=== PATIENT | female | born 1945 ===

== ENCOUNTER 2018-11-14 12:54 | Inpatient (IN) ==
[2018-11-15] MEDS: *HR* Enoxaparin 40 MG/0.4 ML SYRINGE SQ SCH (05:27)
[2018-11-15 05:55] LABS: Basophils % 0.6 %; Eosinophils # 0.3 K/mcL (0.0-0.6); Eosinophils % 4.8 %; Hematocrit 38.1 % (35.3-44.9); Hemoglobin 12.7 g/dL (11.5-15.4); Immature Granulocytes % 0.2 % (0-4); Lymphocytes # 1.8 K/mcL (0.6-4.6); Lymphocytes % 29.4 %; Mean Corpuscular HGB Conc 33.3 g/dL (31.6-35.5); Mean Corpuscular Volume 92.9 fL (83.0-100.0); Monocytes # 0.6 K/mcL (0.0-1.3); Monocytes % 9.2 %; Neutrophils # 3.5 K/mcL (1.6-8.9); Platelet Count 211 K/mcL (140-400); Red Cell Distribution Width 12.5 % (11.5-14.5); Segmented Neutrophils % 55.8 %; White Blood Count 6.2 K/mcL (4.3-11.1)
[2018-11-15 06:11] LABS: Alanine Aminotransferase 8 Units/L (7-52); Albumin 3.5 g/dL (3.5-5.7); Albumin/Globulin Ratio 1.5 (1.1-2.2); Alkaline Phosphatase 68 Units/L (34-104); Aspartate Amino Transferase 12 Units/L (13-39); BUN/Creatinine Ratio 35 (6-26); Bilirubin,Total 0.8 mg/dL (0.3-1.0); Blood Urea Nitrogen 18 mg/dL (8-23); Calcium 8.4 mg/dL (8.6-10.3); Carbon Dioxide 29 mEq/L (23-29); Chloride 106 mEq/L (98-107); Globulin 2.3 g/dL (2.4-3.5); Glucose 109 mg/dL (70-105); Osmolality,Calculated 294 (280-300); Potassium 3.7 mEq/L (3.5-5.1); Sodium 141 mEq/L (136-145); Total Protein 5.8 g/dL (6.4-8.9); eGFR For African Americans > 60 (> 60); eGFR For Non-African Americans > 60 (> 60)
[2018-11-15] MEDS: Aspirin 81 MG TAB.CHEW PO SCH (08:10)
--- NOTE | 2018-11-15 09:43 | Internal Med History&Physical ---
Date of Encounter: 11/15/18 Time of Encounter: 09:40 Assessment and Plan (1) CVA (cerebral vascular accident) Current visit: Yes Status: Acute Patient is an admission from [facility] where she was treated for a left CVA resolving and slight right hemiparesis. Patient continues to have some difficulty with gait during ambulation due to slight right foot drop. Patient being fitted with AFO. Patient states that her strength has been returning to her right extremities. Physical therapy evaluation with recommendations pending. We will continue with current medications. Blood pressure goal for systolic is to maintain less than 160. Qualifiers: CVA mechanism: unspecified Qualified Code(s): I63.9 - Cerebral infarction, unspecified (2) Hypertension Current visit: Yes Status: Chronic No acute issues. Vital signs have been stable. We will continue with current medications with a blood pressure goal for systolic at less than 160. Qualifiers: Hypertension type: unspecified Qualified Code(s): I10 - Essential (primary) hypertension Internal Medicine - H&P: HPI Chief complaint: CVA Admitted From: Hospital to Hospital Transfer Plans for Post Hospital Care: Home History of present illness: Ms. Benoit is a 73 year old female, who initially presented with strokelike symptoms including right leg weakness with numbness and right hand weakness with numbness for approximately 3 days. Patient was admitted for CVA workup included CT head initially showed no acute intracranial abnormalities. MRI showed Restricted diffusion within the left periventricular white matter extending into the left basal ganglia additional separate foci of restricted diffusion in the left posterior lentiform nucleus. Impression is acute infarct with left periventricular white matter extending into the left basal ganglia additional separate foci of restricted diffusion within the left posterior lentiform nucleus with associated susceptibility signal. No corresponding area of hemorrhage identified. CTA negative for hemorrhage. Echo showed no evidence of PFO by color Doppler or agitated saline, LVEF of 60-65%, mild left ventricular diastolic dysfunction, no pulmonary hypertension, no significant valvular dysfunction. Patient's vital signs on admission showed hypertension but no tachycardia and patient was afebrile. Patient has continued to be hypertensive although due to CVA permissive hypertension is suggested and neurology suggested Blood pressures to be 185/100. Patient has been started on aspirin as well as atorvastatin for elevated LDL. PT and OT have seen patient and advise inpatient rehabilitation. Patient was transferred to this facility for further rehabilitation due to generalized weakness and unsteady gait. Patient states that she feels her strength has been improving on her right extremities, but continues to have some difficulty controlling her right foot which tends to turn inward and makes ambulation unsteady and difficult. She denies any other discomforts or shortness of breath. Patient had no significant medical history prior to her admission to the hospital. Past Med Surg Social Fam HX - Past Medical History Medical history: non-contributory, hyperlipidemia Additional medical history: tonsils removed Psychiatric history: no psych history - Past Surgical History Surgical History: hysterectomy Additional surgical history: hemmoriodectomy - Social History Smoking Status: Current every day smoker Smokeless Tobacco Status: No Alcohol use: rarely Drug use: none - Family History Mother Hx Family Cancer: Yes (lung cancer) Internal Medicine - H&P: Meds Aspirin 81 mg PO DAILY #30 tab.chew 11/12/18 [Rx] Atorvastatin [Lipitor] 40 mg PO HS 30 Days #30 tablet 11/12/18 [Rx] Allergy/AdvReac Type Severity Reaction Status Date / Time No Known Allergies Allergy Verified 11/10/18 16:39 All Systems PM: A 10-system review of systems was performed and is negative for pertinent findings except as documented above in the HPI. - Constitutional Constitutional: no chills, no fever(s), no night sweats - EENT Eyes: as per HPI, no change in vision, no discharge, no pain, no photophobia Ears: as per HPI, no ear discharge, no ear pain, no tinnitus Nose, mouth and throat: as per HPI, no dysphagia, no nasal discharge, no neck pain, no sore throat - Breasts Breasts: as per HPI - Cardiovascular Cardiovascular ROS IM: as per HPI, no chest pain, no diaphoresis, no dyspnea, no lightheadedness, no palpitations, no syncope - Respiratory Respiratory: as per HPI, no cough, no dyspnea, no wheezing, no excessive phlegm production - Gastrointestinal Gastrointestinal: as per HPI, no abdominal pain, no diarrhea, no hematemesis, no hematochezia, no melena, no nausea, no vomiting - Genitourinary Genitourinary: as per HPI, no change in urinary stream, no dysuria, no flank pain, no hematuria - Musculoskeletal Musculoskeletal ROS IM: as per HPI, no numbness, no tingling - Integumentary Integumentary IM: as per HPI, no rash, no unusual bruising - Neurological Neurological ROS: as per HPI, no confusion, no convulsions, no focal weakness, no numbness, no tingling, no tremor(s) - Psychiatric Psychiatric: as per HPI - Endocrine Endocrine IM: as per HPI - Hematologic/Lymphatic Hematologic/Lymphatic: no easy bruising - Constitutional Vitals: Temp Pulse Resp BP Pulse Ox 98.1 F 71 16 146/83 95 11/15/18 08:00 11/15/18 08:00 11/15/18 08:00 11/15/18 08:00 11/15/18 08:00 General appearance: Present: A&O X 3, pleasant - Head Head exam: Present: atraumatic, normocephalic - Eye Eye exam: Present: PERRL, conjuntiva pink, sclera anicteric Pupils: Present: PERRL - Neck Neck exam general surgery: Present: supple, trachea midline. Absent: lymphadenopathy - Respiratory Respiratory exam: Present: decreased breath sounds, CTAB. Absent: accessory muscle use, rales, rhonchi, wheezes - Cardiovascular Cardiovascular exam: Present: RRR, +S1, +S2. Absent: diastolic murmur, gallop, rubs, systolic murmur - GI/Abdominal GI/Abdominal exam: Present: normal bowel sounds, soft, no peritoneal signs. Absent: distended, tenderness - Extremities Exam Extremities exam: Present: warm, radial pulses palpable and symmetrical. Ab sent: calf tenderness, cyanotic, pedal edema - Neurological Exam Neurological exam: Present: CN II-XII intact, oriented X3. Absent: pronater drift, facial droop, speech deficit Additional comments: Slight right hemiparesis with right extremities at 4+/5, although right lower extremity shows slightly low increased weakness. Dorsiflexion for right foot at 4/5 with a tendency to rotate medially. Left extremity is a 5/5. - Skin Skin exam: Present: dry, intact Internal Med - H&P Results - Labs CBC & Chem 7: 11/15/18 05:20 11/15/18 05:20 Labs: Short CBC 11/15/18 Range/Units 05:20 WBC 6.2 (4.3-11.1) K/mcL Hgb 12.7 (11.5-15.4) g/dL Hct 38.1 (35.3-44.9) % Plt Count 211 (140-400) K/mcL Neutrophils # 3.5 (1.6-8.9) K/mcL BMP 11/15/18 05:20 Sodium 141 Potassium 3.7 Chloride 106 Carbon Dioxide 29 BUN 18 Creatinine 0.52 L Glucose 109 H Calcium 8.4 L Liver Function 11/15/18 Range/Units 05:20 Total Bilirubin 0.8 (0.3-1.0) mg/dL AST 12 L (13-39) Units/L ALT 8 (7-52) Units/L Alkaline Phosphatase 68 (34-104) Units/L Albumin 3.5 (3.5-5.7) g/dL
[2018-11-16] MEDS: *HR* Enoxaparin 40 MG/0.4 ML SYRINGE SQ SCH (06:15)
[2018-11-16] MEDS: Aspirin 81 MG TAB.CHEW PO SCH (07:53)
--- NOTE | 2018-11-16 09:47 | Internal Med Progress Note ---
Date of Encounter: 11/16/18 Time of Encounter: 09:45 - Assessment and plan (1) CVA (cerebral vascular accident) Current Visit: Yes Status: Acute Assessment and plan: No acute issues. Patient continues with slight right hemiparesis with slight right foot drop. Right dorsiflexion of 4/5 and patient is requiring AFO during ambulation. States that her strength has been improving since her initial admission and feels that therapy is progressing well. Qualifiers: CVA mechanism: unspecified Qualified Code(s): I63.9 - Cerebral infarction, unspecified (2) Hypertension Current Visit: Yes Status: Chronic Assessment and plan: Vital signs stable. We will continue with current medications. Qualifiers: Hypertension type: unspecified Qualified Code(s): I10 - Essential (primary) hypertension - Time Spent With Patient less than 15 minutes - Subjective Interval history: Patient appears relaxed and currently denies any discomforts or shortness of breath. Patient states that she feels strength continues to improve to her right extremities and that she has had less difficulty ambulating since she has had her AFO placed. - Constitutional Vitals: Temp Pulse Resp BP Pulse Ox 97.8 F 68 18 161/86 95 11/16/18 06:00 11/16/18 06:00 11/16/18 06:00 11/16/18 06:00 11/16/18 06:00 General appearance: Present: A&O X 3, pleasant - Head Head exam: Present: atraumatic, normocephalic - Eye Eye exam: Present: PERRL, conjuntiva pink, sclera anicteric Pupils: Present: PERRL - Neck Neck exam general surgery: Present: supple, trachea midline. Absent: lymphadenopathy - Respiratory Respiratory exam: Present: CTAB. Absent: accessory muscle use, rales, rhonchi, wheezes - Cardiovascular Cardiovascular exam: Present: RRR, +S1, +S2. Absent: diastolic murmur, gallop, rubs, systolic murmur - GI/Abdominal GI/Abdominal exam: Present: normal bowel sounds, soft, no peritoneal signs. Absent: distended, tenderness - Extremities Exam Extremities exam: Present: warm, radial pulses palpable and symmetrical. Absent: calf tenderness, cyanotic, pedal edema - Neurological Exam Neurological exam: Present: CN II-XII intact, oriented X3. Absent: pronater drift, facial droop, speech deficit Additional comments: Patient shows very slight right hemiparesis with right extremities and 4+/5 muscle strength except for right dorsiflexion which is at 4/5. AFO on [address]. Left extremities at 5/5 - Skin Skin exam: Present: dry, intact Internal Medicine: Result - Labs CBC & Chem 7: 11/15/18 05:20 11/15/18 05:20 Consult Discharge Plan - Plan Referrals: Kirby Storey MD [Partnered Physician] - 11/20/18 2:15 pm NONE,PCP [Primary Care Provider] -
[2018-11-16] MEDS: Acetaminophen 325 MG TABLET PO PRN (17:56)
[2018-11-17] MEDS: *HR* Enoxaparin 40 MG/0.4 ML SYRINGE SQ SCH (06:26)
[2018-11-17] MEDS: Acetaminophen 325 MG TABLET PO PRN ×2 (08:09→20:29)
[2018-11-17] MEDS: Aspirin 81 MG TAB.CHEW PO SCH (08:09)
--- NOTE | 2018-11-17 15:36 | Internal Med Progress Note ---
Date of Encounter: 11/27/18 Time of Encounter: 15:20 - Subjective Interval history: - Assessment and plan (1) CVA (cerebral vascular accident) Current Visit: Yes Status: Acute Assessment and plan: No acute issues. Patient continues with slight right hemiparesis with slight right foot drop. Right dorsiflexion of 4/5 and patient is requiring AFO during ambulation. States that her strength has been improving since her initial admission and feels that therapy is progressing well. Qualifiers: CVA mechanism: unspecified Qualified Code(s): I63.9 - Cerebral infarction, unspecified (2) Hypertension Current Visit: Yes Status: Chronic Assessment and plan: Vital signs stable. We will continue with current medications. Qualifiers: Hypertension type: unspecified Qualified Code(s): I10 - Essential (primary) hypertension - Time Spent With Patient less than 15 minutes - Subjective Interval history: Patient appears relaxed and currently denies any discomforts or shortness of breath. Patient states that she feels strength continues to improve to her right extremities and that she has had less difficulty ambulating since she has had her AFO placed. - EXAM General appearance: Present: A&O X 3, pleasant - Head Head exam: Present: atraumatic, normocephalic - Eye Eye exam: Present: PERRL, conjuntiva pink, sclera anicteric Pupils: Present: PERRL - Neck Neck exam general surgery: Present: supple, trachea midline. Absent: ly mphadenopathy - Respiratory Respiratory exam: Present: CTAB. Absent: accessory muscle use, rales, rhonchi, wheezes - Cardiovascular Cardiovascular exam: Present: RRR, +S1, +S2. Absent: diastolic murmur, gallop, rubs, systolic murmur - GI/Abdominal GI/Abdominal exam: Present: normal bowel sounds, soft, no peritoneal signs. Absent: distended, tenderness - Extremities Exam Extremities exam: Present: warm, radial pulses palpable and symmetrical. Absent: calf tenderness, cyanotic, pedal edema - Neurological Exam Neurological exam: Present: CN II-XII intact, oriented X3. Absent: pronater drift, facial droop, speech deficit Additional comments: Patient shows very slight right hemiparesis with right extremities and 4+/5 muscle strength except for right dorsiflexion which is at 4/5. AFO on place. Left extremities at 5/5 - Skin Skin exam: Present: dry, intact - Constitutional Vitals: Temp Pulse Resp BP Pulse Ox 97.7 F 78 17 154/73 95 11/17/18 07:09 11/17/18 07:50 11/17/18 07:50 11/17/18 07:50 11/17/18 07:50 General appearance: Present: A&O X 3, pleasant Internal Medicine: Result - Labs CBC & Chem 7: 11/15/18 05:20 11/15/18 05:20 Consult Discharge Plan - Plan Referrals: Rama Dumont CNP [Advanced Practice Nurse] - 11/27/18 10:30 am (Arrive @ 10:15am) Otto Mas MD [Partnered Physician] - 12/10/18 10:00 am (This is at the [place] location!) Prescriptions: Losartan [Cozaar] 25 mg PO DAILY #14 tablet Prescription Printed Atorvastatin [Lipitor] 40 mg PO HS 30 Days #30 tablet Prescription Printed
[2018-11-17] MEDS: cloNIDine HCl 0.1 MG TABLET PO PRN (20:29)
[2018-11-18] MEDS: *HR* Enoxaparin 40 MG/0.4 ML SYRINGE SQ SCH (06:55)
[2018-11-18] MEDS: Aspirin 81 MG TAB.CHEW PO SCH (07:43)
--- NOTE | 2018-11-18 16:21 | Internal Med Progress Note ---
Date of Encounter: 11/18/18 Time of Encounter: 15:10 - Subjective Interval history: - Assessment and plan (1) CVA (cerebral vascular accident) Current Visit: Yes Status: Acute Assessment and plan: Stable. Patient continues with slight right hemiparesis with slight right foot drop. Right dorsiflexion of 4/5 and patient is requiring AFO during ambulation. States that her strength has been improving since her initial admission and feels that therapy is progressing well. Qualifiers: CVA mechanism: unspecified Qualified Code(s): I63.9 - Cerebral infarction, unspecified (2) Hypertension Current Visit: Yes Status: Chronic Assessment and plan: Vital signs stable. We will continue with current medications. Qualifiers: Hypertension type: unspecified Qualified Code(s): I10 - Essential (primary) hypertension - Time Spent With Patient less than 15 minutes - Subjective Interval history: Patient doing well in therapy. Patient states that she feels strength continues to improve to her right extremities and that she has had less difficulty ambulating - EXAM General appearance: Present: A&O X 3, pleasant - Head Head exam: Present: atraumatic, normocephalic - Eye Eye exam: Present: PERRL, conjuntiva pink, sclera anicteric Pupils: Present: PERRL - Neck Neck exam general surgery: Present: supple, trachea midline. - Respiratory Respiratory exam: Present: CTAB. Absent: accessory muscle use, rales, rhonchi, wheezes - Cardiovascular Cardiovascular exam: Present: RRR, +S1, +S2. Absent: diastolic murmur, gallop, rubs, systolic murmur - GI/Abdominal GI/Abdominal exam: Present: normal bowel sounds, soft, no peritoneal signs. Absent: distended, tenderness - Extremities Exam Extremities exam: Present: warm, radial pulses palpable and symmetrical. Absent: calf tenderness, cyanotic, pedal edema - Neurological Exam Neurological exam: Present: CN II-XII intact, oriented X3. Additional comments: Patient shows very slight right hemiparesis with right extremities and 4+/5 muscle strength except for right dorsiflexion which is at 4/5. AFO on place. Left extremities at 5/5 - Skin Skin exam: Present: dry, intact - Constitutional Vitals: Temp Pulse Resp BP Pulse Ox 97.6 F 64 18 147/79 94 11/18/18 07:22 11/18/18 07:22 11/18/18 07:22 11/18/18 07:22 11/18/18 07:22 General appearance: Present: A&O X 3, pleasant Internal Medicine: Result - Labs CBC & Chem 7: 11/15/18 05:20 11/15/18 05:20 Consult Discharge Plan - Plan Referrals: Rama Dumont CNP [Advanced Practice Nurse] - 11/27/18 10:30 am (Arrive @ 10:15am) Otto Mas MD [Partnered Physician] - 12/10/18 10:00 am (This is at the [place] location!) Prescriptions: Losartan [Cozaar] 25 mg PO DAILY #14 tablet Prescription Printed Atorvastatin [Lipitor] 40 mg PO HS 30 Days #30 tablet Prescription Printed
[2018-11-19] MEDS: *HR* Enoxaparin 40 MG/0.4 ML SYRINGE SQ SCH (06:30)
[2018-11-19] MEDS: Aspirin 81 MG TAB.CHEW PO SCH (07:35)
--- NOTE | 2018-11-19 10:01 | Internal Med Progress Note ---
Date of Encounter: 11/19/18 Time of Encounter: 09:58 - Assessment and plan (1) CVA (cerebral vascular accident) Current Visit: Yes Status: Acute Assessment and plan: No acute issues. Patient continues with slight right hemiparesis +4/5, with slight right foot drop. Right dorsiflexion of 4/5 and patient is requiring AFO during ambulation. States that her strength has been improving since her initial admission and feels that therapy is progressing well. Qualifiers: CVA mechanism: unspecified Qualified Code(s): I63.9 - Cerebral infarction, unspecified (2) Hypertension Current Visit: Yes Status: Chronic Assessment and plan: Vital signs stable. We will continue with current medications. Qualifiers: Hypertension type: unspecified Qualified Code(s): I10 - Essential (primary) hypertension (3) Constipation Current Visit: Yes Status: Acute Assessment and plan: No BM in 3 days. States no abd cramping or pain. Passing flatus. Will review her laxatives. Qualifiers: Constipation type: unspecified constipation type Qualified Code(s): K59.00 - Constipation, unspecified - Time Spent With Patient less than 15 minutes - Subjective Interval history: Patient appears relaxed and currently denies any discomforts or shortness of breath. Patient states that she feels strength continues to improve to her right extremities and that she has had less difficulty ambulating since she has had her AFO placed. States some issues with having BM. Reports no BM in three days. Denies any Hx of constipation. Denies any discomforts and states passing flatus. - Constitutional Vitals: Temp Pulse Resp BP Pulse Ox 98.0 F 60 18 160/78 93 11/19/18 07:04 11/19/18 07:04 11/19/18 07:04 11/19/18 07:04 11/19/18 07:04 General appearance: Present: A&O X 3, pleasant - Head Head exam: Present: atraumatic, normocephalic - Eye Eye exam: Present: PERRL, conjuntiva pink, sclera anicteric Pupils: Present: PERRL - Neck Neck exam general surgery: Present: supple, trachea midline. Absent: lymphadenopathy - Respiratory Respiratory exam: Present: CTAB. Absent: accessory muscle use, rales, rhonchi, wheezes - Cardiovascular Cardiovascular exam: Present: RRR, +S1, +S2. Absent: diastolic murmur, gallop, rubs, systolic murmur - GI/Abdominal GI/Abdominal exam: Present: normal bowel sounds, soft, no peritoneal signs. Absent: distended, tenderness - Extremities Exam Extremities exam: Present: warm, radial pulses palpable and symmetrical. Absent: calf tenderness, cyanotic, pedal edema - Neurological Exam Neurological exam: Present: CN II-XII intact, oriented X3. Absent: pronater d rift, facial droop, speech deficit Additional comments: Continues with slight right hemiparesis. Right extremities +4/5, although her right DF is 4/5. Left extremities 5/5. AFO brace in use. - Skin Skin exam: Present: dry, intact Internal Medicine: Result - Labs CBC & Chem 7: 11/15/18 05:20 11/15/18 05:20 Consult Discharge Plan - Plan Referrals: Kirby Storey MD [Partnered Physician] - 11/20/18 2:15 pm NONE,PCP [Primary Care Provider] -
[2018-11-19] MEDS: cloNIDine HCl 0.1 MG TABLET PO PRN (19:51)
[2018-11-20] MEDS: *HR* Enoxaparin 40 MG/0.4 ML SYRINGE SQ SCH (05:48)
[2018-11-20] MEDS: Aspirin 81 MG TAB.CHEW PO SCH (08:03)
--- NOTE | 2018-11-20 10:26 | Internal Med Progress Note ---
Date of Encounter: 11/20/18 Time of Encounter: 10:24 - Assessment and plan (1) CVA (cerebral vascular accident) Current Visit: Yes Status: Acute Assessment and plan: Continue PT and OT. Will follow progress. Proving. Wearing AFO to right foot. Follow up with neurology as scheduled. Qualifiers: CVA mechanism: unspecified Qualified Code(s): I63.9 - Cerebral infarction, unspecified (2) Hypertension Current Visit: Yes Status: Chronic Assessment and plan: Controlled with current medication. Monitor blood pressure. Qualifiers: Hypertension type: unspecified Qualified Code(s): I10 - Essential (primary) hypertension - Time Spent With Patient less than 15 minutes - Subjective Interval history: Ambulating with Walker was standby assist. Participating well with therapy. Denies fever, chills, nausea vomiting or diarrhea. Denies shortness of breath or chest pain. Wearing AFO on right foot. States this is helping a lot for her mobility. Maintaining appetite and hydration. last BM was 2 days ago. states she will take miralax if unable to go today. - Constitutional Vitals: Temp Pulse Resp BP Pulse Ox 98 F 60 16 153/79 98 11/20/18 06:54 11/20/18 06:54 11/20/18 06:54 11/20/18 06:54 11/20/18 06:54 General appearance: Present: cooperative, A&O X 3, pleasant, no acute distress, answers questions appropriately - Head Head exam: Present: atraumatic, normocephalic - Eye Eye exam: Present: PERRL, conjuntiva pink, sclera anicteric Pupils: Present: PERRL - Neck Neck exam general surgery: Present: supple, trachea midline. Absent: lymphadenopathy - Respiratory Respiratory exam: Present: CTAB. Absent: accessory muscle use, rales, rhonchi, wheezes - Cardiovascular Cardiovascular exam: Present: RRR, +S1, +S2. Absent: diastolic murmur, gallop, rubs, systolic murmur - GI/Abdominal GI/Abdominal exam: Present: normal bowel sounds, soft, no peritoneal signs. Absent: distended, tenderness - Extremities Exam Extremities exam: Present: warm, radial pulses palpable and symmetrical. Absent: calf tenderness, cyanotic, pedal edema - Neurological Exam Neurological exam: Present: CN II-XII intact, oriented X3, no focal deficits. Absent: pronater drift, facial droop, speech deficit - Skin Skin exam: Present: dry, intact Internal Medicine: Result - Labs CBC & Chem 7: 11/15/18 05:20 11/15/18 05:20 Consult Discharge Plan - Plan Referrals: Kirby Storey MD [Partnered Physician] - 11/20/18 2:15 pm NONE,PCP [Primary Care Provider] -
--- NOTE | 2018-11-20 10:31 | Internal Med History&Physical ---
Date of Encounter: 11/20/18 Time of Encounter: 10:29 Assessment and Plan (1) CVA (cerebral vascular accident) Current visit: Yes Status: Acute Qualifiers: CVA mechanism: unspecified Qualified Code(s): I63.9 - Cerebral infarction, unspecified (2) Hypertension Current visit: Yes Status: Chronic Qualifiers: Hypertension type: unspecified Qualified Code(s): I10 - Essential (primary) hypertension Internal Medicine - H&P: HPI History of present illness: Ms. Benoit is a 73 year old female Past Med Surg Social Fam HX - Past Medical History Medical history: non-contributory, hyperlipidemia Additional medical history: tonsils removed Psychiatric history: no psych history - Past Surgical History Surgical History: hysterectomy Additional surgical history: hemmoriodectomy - Social History Smoking Status: Current every day smoker Smokeless Tobacco Status: No Alcohol use: rarely Drug use: none - Family History Mother Hx Family Cancer: Yes (lung cancer) Internal Medicine - H&P: Meds Aspirin 81 mg PO DAILY #30 tab.chew 11/12/18 [Rx] Atorvastatin [Lipitor] 40 mg PO HS 30 Days #30 tablet 11/12/18 [Rx] Allergy/AdvReac Type Severity Reaction Status Date / Time No Known Allergies Allergy Verified 11/10/18 16:39 All Systems PM: A 10-system review of systems was performed and is negative for pertinent findings except as documented above in the HPI. - Constitutional Vitals: Temp Pulse Resp BP Pulse Ox 98 F 60 16 153/79 98 11/20/18 06:54 11/20/18 06:54 11/20/18 06:54 11/20/18 06:54 11/20/18 06:54 General appearance: Present: cooperative, A&O X 3, pleasant, no acute distress, answers questions appropriately - Head Head exam: Present: atraumatic, normocephalic - Eye Eye exam: Present: PERRL, conjuntiva pink, sclera anicteric Pupils: Present: PERRL - Neck Neck exam general surgery: Present: supple, trachea midline. Absent: lymphad enopathy - Respiratory Respiratory exam: Present: CTAB. Absent: accessory muscle use, rales, rhonchi, wheezes - Cardiovascular Cardiovascular exam: Present: irregular rhythm, RRR, +S1, +S2, systolic murmur. Absent: diastolic murmur, gallop, rubs - GI/Abdominal GI/Abdominal exam: Present: normal bowel sounds, soft, no peritoneal signs. Absent: distended, tenderness - Extremities Exam Extremities exam: Present: warm, radial pulses palpable and symmetrical. Absent: calf tenderness, cyanotic, pedal edema - Neurological Exam Neurological exam: Present: CN II-XII intact, oriented X3, no focal deficits. Absent: pronater drift, facial droop, speech deficit - Skin Skin exam: Present: dry, intact Additional comments: wound to left lateral foot, no drainage. wound to left bunion area with eschar in woundbed. no drainage. Scattered ecchymosis throughout. Internal Med - H&P Results - Labs CBC & Chem 7: 11/15/18 05:20 11/15/18 05:20
[2018-11-21] MEDS: *HR* Enoxaparin 40 MG/0.4 ML SYRINGE SQ SCH (05:28)
[2018-11-21] MEDS: Aspirin 81 MG TAB.CHEW PO SCH (08:03)
--- NOTE | 2018-11-21 11:58 | Internal Med Progress Note ---
Date of Encounter: 11/21/18 Time of Encounter: 11:57 - Assessment and plan (1) CVA (cerebral vascular accident) Current Visit: Yes Status: Acute Assessment and plan: Continue PT and OT. Will follow progress. Proving. Wearing AFO to right foot. Follow up with neurology as scheduled. Qualifiers: CVA mechanism: unspecified Qualified Code(s): I63.9 - Cerebral infarction, unspecified (2) Hypertension Current Visit: Yes Status: Chronic Assessment and plan: Controlled with current medication. Monitor blood pressure. Qualifiers: Hypertension type: unspecified Qualified Code(s): I10 - Essential (primary) hypertension - Time Spent With Patient less than 15 minutes - Subjective Interval history: Ambulating with Walker was standby assist. Participating well with therapy. Denies fever, chills, nausea vomiting or diarrhea. Denies shortness of breath or chest pain. Wearing AFO on right foot. States this is helping a lot for her mobility. Maintaining appetite and hydration. last BM was last night after having an enema. - Constitutional Vitals: Temp Pulse Resp BP Pulse Ox 97.5 F L 74 18 158/84 94 11/21/18 09:00 11/21/18 09:00 11/21/18 09:00 11/21/18 09:00 11/21/18 09:00 General appearance: Present: cooperative, A&O X 3, pleasant, no acute distress, answers questions appropriately - Head Head exam: Present: atraumatic, normocephalic - Eye Eye exam: Present: PERRL, conjuntiva pink, sclera anicteric Pupils: Present: PERRL - Neck Neck exam general surgery: Present: supple, trachea midline. Absent: lymphadenopathy - Respiratory Respiratory exam: Present: CTAB. Absent: accessory muscle use, rales, rhonchi, wheezes - Cardiovascular Cardiovascular exam: Present: RRR, +S1, +S2. Absent: diastolic murmur, gallop, rubs, systolic murmur - GI/Abdominal GI/Abdominal exam: Present: normal bowel sounds, soft, no peritoneal signs. Absent: distended, tenderness - Extremities Exam Extremities exam: Present: warm, radial pulses palpable and symmetrical. Absent: calf tenderness, cyanotic, pedal edema - Neurological Exam Neurological exam: Present: CN II-XII intact, oriented X3, no focal deficits. Absent: pronater drift, facial droop, speech deficit - Skin Skin exam: Present: dry, intact Internal Medicine: Result - Labs CBC & Chem 7: 11/15/18 05:20 11/15/18 05:20 Consult Discharge Plan - Plan Referrals: Kirby Storey MD [Partnered Physician] - 11/20/18 2:15 pm NONE,PCP [Primary Care Provider] -
--- NOTE | 2018-11-21 14:35 | Psychological Evaluation ---
Date of Encounter: 11/21/18 Time of Encounter: 10:30 History of Present Illness History of present illness: Ms. Benoit is a 73 year old female was admitted from [facility] where she was treated for a left CVA resolving and slight right hemiparesis. Patient continues to have some difficulty with gait during ambulation due to slight right foot drop. Patient being fitted with AFO. Patient states that her strength has been returning to her right extremities. Past Medical History - Psychiatric History Psychiatric history: Reports: no psych history Home Medications and Allergies Aspirin 81 mg PO DAILY #30 tab.chew 11/12/18 [Rx] Atorvastatin [Lipitor] 40 mg PO HS 30 Days #30 tablet 11/12/18 [Rx] Allergy/AdvReac Type Severity Reaction Status Date / Time No Known Allergies Allergy Verified 11/10/18 16:39 Social History - Social History Social History: Completed 8th grade . 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 since .lives with son and his girlfriend. Has 4 boys. - Tobacco Use Smoking Status: Former smoker - Alcohol Use Alcohol Use: occasionally - Drug Use Drug Use: none Cognitive/Emotional Assessment - Cognitive Ability Abstract Thinking Ability: No Deficits Noted Attention Span Ability: Capable of Focused Attention Language Function Ability: No Deficits Noted Verbal Communication Ability: Conversational Style Problem Solving Ability: Able To Solve Simple Problems Safety Awareness: Patient Is Aware of Their Safety Level of Alertness: Alert Memory Description: Recent Intact, Remote Intact Orientation: Person, Place, Time Visual Spatial Deficit: No Deficits Noted Ability to Follow Directions: Good Speech Pattern: Normal rate, Normal rhythm, Normal tone, Appropriate Thought Process: Intact Calculations: Able to spell WORLD backw Immediate Recall: Recalls 3 objects/words - Emotional Status Mood Description: Anxious Affect Description: Euthymic/stable Coping Ability: Verbalizes positive coping skills Additional Findings: Expressed concerns as to changes but feels they are just physical and will need to slow down which will be difficult for her. Assessment & Plan - Diagnosis (1) Adjustment disorder with anxiety - Prognosis Prognosis: Excellent - Treatment Plan Treatment Plan/Recommendations: Will robb with adapting to changes since CVA and re-entering back into home life. Treatment Frequency: weekly Next Session Date: 11/28/18 Procedures - Participants Therapy Participant: Patient - Session Time Session Start Time: 10:30 Session Stop Time: 11:00
[2018-11-21] MEDS: cloNIDine HCl 0.1 MG TABLET PO PRN (20:52)
[2018-11-22] MEDS: *HR* Enoxaparin 40 MG/0.4 ML SYRINGE SQ SCH (06:18)
[2018-11-22] MEDS: Aspirin 81 MG TAB.CHEW PO SCH (07:32)
[2018-11-22] MEDS: Acetaminophen 325 MG TABLET PO PRN (07:32)
--- NOTE | 2018-11-22 09:34 | Internal Med Progress Note ---
Date of Encounter: 11/22/18 Time of Encounter: 09:32 - Assessment and plan (1) CVA (cerebral vascular accident) Current Visit: Yes Status: Acute Assessment and plan: No acute issues. Patient continues with slight right hemiparesis +4/5, with slight right foot drop. Right dorsiflexion of 4/5 and patient is requiring AFO during ambulation. Patient trial ambulation without AFO yesterday, which showed continued need for AFO. States that her strength has been improving since her initial admission and feels that therapy is progressing well. Patient being prepared for possible discharge tomorrow and states that she feels she is ready. Qualifiers: CVA mechanism: unspecified Qualified Code(s): I63.9 - Cerebral infarction, unspecified (2) Hypertension Current Visit: Yes Status: Chronic Assessment and plan: Vital signs stable. We will continue with current medications. Qualifiers: Hypertension type: unspecified Qualified Code(s): I10 - Essential (primary) hypertension - Time Spent With Patient less than 15 minutes - Subjective Interval history: Patient appears relaxed and currently denies any discomforts or shortness of breath. Patient states that she feels strength continues to improve to her right extremities and that she has had less difficulty ambulating since she has had her AFO placed. Patient had a trial yesterday of ambulating without AFO and stated that she had difficulty without the AFO. Patient states that she knows she will required AFO after discharge. Patient states that she is excited to be discharged home tomorrow - Constitutional Vitals: Temp Pulse Resp BP Pulse Ox 97.7 F 59 15 141/76 97 11/22/18 07:48 11/22/18 07:48 11/22/18 07:48 11/22/18 07:48 11/22/18 07:48 General appearance: Present: cooperative, A&O X 3, pleasant, no acute distress, answers questions appropriately - Head Head exam: Present: atraumatic, normocephalic - Eye Eye exam: Present: PERRL, conjuntiva pink, sclera anicteric Pupils: Present: PERRL - Neck Neck exam general surgery: Present: supple, trachea midline. Absent: lymphadenopathy - Respiratory Respiratory exam: Present: CTAB. Absent: accessory muscle use, rales, rhonchi, wheezes - Cardiovascular Cardiovascular exam: Present: RRR, +S1, +S2. Absent: diastolic murmur, gallop, rubs, systolic murmur - GI/Abdominal GI/Abdominal exam: Present: normal bowel sounds, soft, no peritoneal signs. Absent: distended, tenderness - Extremities Exam Extremities exam: Present: warm, radial pulses palpable and symmetrical. Absent: calf tenderness, cyanotic, pedal edema - Neurological Exam Neurological exam: Present: CN II-XII intact, oriented X3, no focal deficits. Absent: pronater drift, facial droop, speech deficit Additional comments: Very slight weakness noted to the right for her hemiparesis. Right extremity is a +4/5, with her dorsiflexion at 4/5. AFO in place. Left extremities at 5/5 muscle strength. - Skin Skin exam: Present: dry, intact Internal Medicine: Result - Labs CBC & Chem 7: 11/15/18 05:20 11/15/18 05:20 Consult Discharge Plan - Plan Referrals: Kirby Storey MD [Partnered Physician] - 11/20/18 2:15 pm NONE,PCP [Primary Care Provider] -
[2018-11-23] MEDS: *HR* Enoxaparin 40 MG/0.4 ML SYRINGE SQ SCH (05:55)
[2018-11-23] MEDS: Aspirin 81 MG TAB.CHEW PO SCH (08:54)
--- NOTE | 2018-11-23 09:18 | Physician Discharge Referral ---
Home Health/Hosp Referral Info Transfer to: Home Health Provider in Charge Post Discharge: PCP - Diagnosis (1) CVA (cerebral vascular accident) Priority: Primary Status: Acute (2) Hypertension Priority: Secondary Status: Chronic - Respiratory Orders Smoking Cessation: Smoking cessation has been advised. For more information, call the [place] Tobacco Quit Line at 6-026-MTNY-NOW. - Diet/Nutrition Diet/Nutrition Orders: Regular - Activity Activity Orders: Ambulate - Services Needed Following services are medically necessary services: Nursing, Physical Therapy, Occupational Therapy Home Care Orders: new BP med started, please monitor BP - Transfer Medications Home Medications: Aspirin 81 mg PO DAILY #30 tab.chew 11/12/18 [Rx] Atorvastatin [Lipitor] 40 mg PO HS 30 Days #30 tablet 11/12/18 [Rx] Allergies/Adverse Reactions: Allergy/AdvReac Type Severity Reaction Status Date / Time No Known Allergies Allergy Verified 11/10/18 16:39 Certification: Further, I certify that my clinical findings support that this patient is homebound (i.e. absences from home require considerable and taxing effort and are for medical reasons or hinduism services or infrequently or short duration when for other reasons) because: Homebound Reason: Patient requires assistance of a person or device to safely leave home, Leaving home requires considerable and taxing effort due to condition Attestation: My signature below is to certify that this patient is under my care and that I, or nurse practitioner, or a physician's program support assistant working with me, has a [id number] encounter with this patient.
--- NOTE | 2018-11-23 09:22 | Discharge Summary ---
Date of Encounter: 11/23/18 Time of Encounter: :19 - Discharge Diagnosis (1) CVA (cerebral vascular accident) Priority: Primary Status: Acute Comments: Improving. Follow up with neurology as scheduled. No new neurological de ficits. Continue home health PT, OT and nursing. Qualifiers: CVA mechanism: unspecified Qualified Code(s): I63.9 - Cerebral infarction, unspecified (2) Hypertension Priority: Secondary Status: Chronic Comments: Losartan started this morning. Scheduled to follow up with new PCP on . monitor BP Qualifiers: Hypertension type: essential hypertension Qualified Code(s): I10 - Essenti al (primary) hypertension Hospital course: Ms. Benoit is a 73 year old female discharging to home with son. Will continue home health PT, OT and nursing. Patient was transferred to this facility for further rehabilitation due to generalized weakness and unsteady gait after presenting with strokelike symptoms. CT head initially showed no acute intracranial abnormalities. MRI showed Restricted diffusion within the left periventricular white matter extending into the left basal ganglia additional separate foci of restricted diffusion in the left posterior lentiform nucleus. Impression is acute infarct with left periventricular white matter extending into the left basal ganglia additional separate foci of restricted diffusion within the left posterior lentiform nucleus with associated susceptibility signal. No corresponding area of hemorrhage identified. CTA negative for hemorrhage. Echo showed no evidence of PFO by color Doppler or agitated saline, LVEF of 60-65%, mild left ventricular diastolic dysfunction, no pulmonary hypertension, no significant valvular dysfunction. Patient's vital signs on admission showed hypertension but no tachycardia and patient was afebrile. Patient has continued to be hypertensive although due to CVA permissive hypertension is suggested and neurology suggested Blood pressures to be 185/100. Patient has been started on aspirin as well as atorvastatin for elevated LDL. Patient states she is ready for discharge and believes her strength has improved. Wearing AFO brace on right foot. To be fitted for custom one at discharge. Denies any new neurological symptoms. Denies fever, chills, nausea vomiting or diarrhea. Denies shortness of breath or chest pain. Patient had no significant medical history prior to her admission to the hospital. Discharge discussed with: patient, nurse, social work - Time Spent with Patient Total time spent providing and/or coordinating discharge services: Time spent: Less than 30 minutes - Discharge Medications Prescriptions: No Action Aspirin 81 mg PO DAILY #30 tab.chew Atorvastatin [Lipitor] 40 mg PO HS 30 Days #30 tablet Home Medications: Aspirin 81 mg PO DAILY #30 tab.chew 11/12/18 [Rx] Acetaminophen [Tylenol] 650 mg PO Q6HR PRN tablet 11/23/18 [Rx] Atorvastatin [Lipitor] 40 mg PO HS 30 Days #30 tablet 11/23/18 [Rx] Enoxaparin [Lovenox] 40 mg SQ 0600 syringe 11/23/18 [Rx] Losartan [Cozaar] 25 mg PO DAILY #14 tablet 11/23/18 [Rx] Polyethylene Glycol 3350 [MiraLAX] 17 gm PO DAILY PRN powd.pack 11/23/18 [Rx] cloNIDine HCl [CloNIDine HCl] 0.1 mg PO Q12H PRN #14 tablet 11/23/18 [Rx] Allergies/Adverse Reactions: Allergy/AdvReac Type Severity Reaction Status Date / Time No Known Allergies Allergy Verified 11/10/18 16:39 Date of admission: 11/14/18 12:54 Primary care physician: PCP NONE Consults: 11/14/18 13:29 Consult to Occupational Therapy [CONS] Routine Comment: Evaluate, develop and implement POC Reason for Consult: eval Does patient have active BEDREST order?: No Is patient medically & hemodynamically stable?: Yes Consult to Physical Therapy [CONS] Routine Comment: Evaluate, develop and implement POC Reason for Consult: eval Does patient have active BEDREST order?: No Is patient medically & hemodynamically stable?: Yes Consult to Recreational Therapy [CONS] Routine Comment: Evaluate, develop and implement POC Consult to Commercial Journeyman Electrician [CONS] Routine Reason for SW Consult: d/c planning Consult to Speech Therapy [CONS] Routine Comment: Evaluate, develop and implement POC Reason for Consult: speech impairment Call Completed: Yes 11/19/18 12:48 Consult to Psychology [CONS] Routine Consulting Provider: Melissa Patel Reason for Consult: Possible depression; adjustment disorder Call Completed: No Discharging clinician: Dany López Anticipated date of discharge: 11/23/18 - Constitutional Vitals: Temp Pulse Resp BP Pulse Ox 97.8 F 64 16 166/80 95 11/23/18 07:41 11/23/18 07:41 11/23/18 07:41 11/23/18 07:41 11/23/18 07:41 General appearance: Present: cooperative, A&O X 3, pleasant, no acute distress, answers questions appropriately - Head Head exam: Present: atraumatic, normocephalic - Eye Eye exam: Present: PERRL, conjuntiva pink, sclera anicteric Pupils: Present: PERRL - Neck Neck exam general surgery: Present: supple, trachea midline. Absent: lymphadenopathy - Respiratory Respiratory exam: Present: CTAB. Absent: accessory muscle use, rales, rhonchi, wheezes - Cardiovascular Cardiovascular exam: Present: RRR, +S1, +S2. Absent: diastolic murmur, gallop, rubs, systolic murmur - GI/Abdominal GI/Abdominal exam: Present: normal bowel sounds, soft, no peritoneal signs. Absent: distended, tenderness - Extremities Exam Extremities exam: Present: warm, radial pulses palpable and symmetrical. Absent: calf tenderness, cyanotic, pedal edema - Neurological Exam Neurological exam: Present: CN II-XII intact, oriented X3, no focal deficits. Absent: pronater drift, facial droop, speech deficit - Skin Skin exam: Present: dry, intact - Patient Status Disposition: Home Health Service Condition: Good Functional capacity at discharge: independent ambulation Overall status at discharge: patient is progressing back to baseline - Discharge Instructions Follow Up With: Rama Dumont CNP [Advanced Practice Nurse] - 11/27/18 10:30 am (Arrive @ 10:15am) Otto Mas MD [Partnered Physician] - 12/10/18 10:00 am (This is at the [place] location!) - Diet and Activity Activity: as per physical therapy Diet: low fat, low cholesterol
[2018-11-23] MEDS: cloNIDine HCl 0.1 MG TABLET PO PRN (11:14)
[2018-11-23] MEDS: Acetaminophen 325 MG TABLET PO PRN (11:14)
[2018-11-23 12:36] VITALS: BP 135/75
== END 2018-11-23 12:35 | disposition home health service (06) | DRG 57 ==
LOC: INPGRE 12:54